=== PATIENT | male | born 1990 | race Caucasian/White ===

== ENCOUNTER 2016-11-05 18:19 | Emergency (ER) ==
[2016-11-05 18:24] VITALS: BP 133/76; TEMP 96.8; BMI 26.4
[2016-11-05] MEDS ORDERED: SODIUM CHLORIDE 1,000 ML IV STA (18:31)
--- NOTE | 2016-11-05 18:31 | ED.PDOC ---
General Stated Complaint: left lower abdomen stabbing sharp pain has vomited not able to urinate[End]SINCE 1300 96.8 58 14 99% 133/76 9/10 having trouble urinating[ End] Time Seen by Physician: 18:35 Mode of Arrival: Walk-In Information Source: Patient Exam Limitations: No limitations Nursing and Triage Documentation Reviewed and Agree: No <MARK ESCOBEDO JR - Last Filed: 11/05/16 18:53> <POLY LOW - Last Filed: 11/05/16 19:31> ED Provider: Dr. POLY LOW Chief Complaint: Kidney Stone Review of Systems - Review Of Systems Constitutional: Reports: Malaise, Weakness Eyes: Reports: No symptoms Ears, Nose, Mouth, Throat: Reports: No symptoms Respiratory: Reports: No symptoms Cardiac: Reports: No symptoms GI: Reports: Abdominal pain (LLQ), Nausea, Vomiting : Reports: Other Musculoskeletal: Reports: No symptoms Skin: Reports: No symptoms Neurological: Reports: No symptoms Endocrine: Reports: No symptoms Hematologic/Lymphatic: Reports: No symptoms All Other Systems: Other <MARK ESCOBEDO JR - Last Filed: 11/05/16 18:53> Past Medical History - Past Medical History Endocrine: Reports: None Cardiovascular: Reports: None Respiratory: Reports: None Hematological: Reports: None Gastrointestinal: Reports: None Genitourinary: Reports: None Neuro/Psych: Reports: Anxiety, Depression Musculoskeletal: Reports: None Cancer: Reports: None - Surgical History General Surgical History: Reports: Tonsillectomy, Adenoidectomy, Other ( PETUBES ), Unknown - Family History Family History: Reports: Unknown - Social History Smoking Status: Current every day smoker, Light tobacco smoker Hx Substance Use: No Alcohol Screening: None <MARK ESCOBEDO JR - Last Filed: 11/05/16 18:53> Physical Exam - Physical Exam Appearance: Well-appearing, Thin Pain Distress: Moderate Neck: Supple Respiratory: Airway patent Cardiovascular: RRR GI/: Soft, No masses, Tender (LLQ wihtout rebound slight fullness no discrete mass), Bowel sounds hypoactive Musculoskeletal: Normal strength, ROM intact, No edema, No calf tenderness Skin: Warm, Dry, Normal color Neurological: Sensation intact, Motor intact, Reflexes intact, Cranial nerves intact, Alert, Oriented Psychiatric: Affect appropriate, Mood appropriate <MARK ESCOBEDO JR - Last Filed: 11/05/16 18:53> Interpretation - Radiology Interpretation Radiology Interpretation By: Radiologist Radiology Results: Positive Exam Interpreted: CT Scan ("0.1 ureteral stone") <JOLANTATDPOLY - Last Filed: 11/05/16 19:31> Re-Evaluation - Re-Evaluation Time of Re-Evaluation: 19:28 Status: Improved Vital Signs Stable: Yes Pain Level: 1 Appearance: NAD Lungs: Clear Skin: Warm and Dry Neuro: Alert and Oriented X3 CV: RRR <JOLANTATDPOLY - Last Filed: 11/05/16 19:31> Physician Notification - Case Discussed Endorsed To/Discussed With: dr arita Time of Discussion: 18:53 <MARK ESCOBEDO - Last Filed: 11/05/16 18:53> Critical Care Note - Critical Care Note Total Time (mins): 0 <MARK ESCOBEDO - Last Filed: 11/05/16 18:53> Course - Course Hematology/Chemistry: 11/05/16 18:50 11/05/16 18:50 <POLY LOW - Last Filed: 11/05/16 19:31> - Course Orders, Labs, Meds: Lab Review 11/05/16 11/05/16 18:33 18:50 WBC 15.74 H RBC 5.11 Hgb 16.1 Hct 46.5 MCV 91.0 MCH 31.5 H MCHC 34.6 RDW Coeff of [place]ma 11.8 Plt Count 200 Immature Gran % (Auto) 0.4 Neut % (Auto) 89.8 Lymph % (Auto) 5.7 L Williams % (Auto) 3.9 Eos % (Auto) 0.1 Baso % (Auto) 0.1 Immature Gran # (Auto) 0.1 Neut # 14.1 H Lymph # 0.9 Williams # 0.6 Eos # 0.0 Baso # 0.0 Sodium 140 Potassium 3.6 Chloride 102 Carbon Dioxide 25 Anion Gap 16.6 BUN 4 L Creatinine 1.08 Estimated GFR (MDRD) 83.00 BUN/Creatinine Ratio 3.70 Glucose 103 H Calcium 9.4 Total Bilirubin 0.93 AST 16 ALT 19 Alkaline Phosphatase 85 Total Protein 7.3 Albumin 4.4 Globulin 2.9 Albumin/Globulin Ratio 1.52 Amylase 32 Lipase 8 Urine Color Yellow Urine Clarity Clear Urine pH 6.0 Ur Specific [place] 1.025 Urine Protein 1+ Urine Glucose (UA) Negative Urine Ketones 4+ Urine Blood 3+ Urine Nitrite Negative Urine Bilirubin 1+ Urine Urobilinogen 1.0 Ur Leukocyte Esterase Negative Urine Microscopic RBC 5-10 Ur Squamous Epith Cells 2-5 Urine Mucus Trace H. pylori IgG Antibody Negative Orders Category Date Time Status Bladder Scan [ED BLADDER SCAN] .ONCE EMERGENCY 11/05/16 19:20 Active ED IV/MEDIPORT/POWERPORT .ONCE EMERGENCY 11/05/16 18:31 Active AMYLASE Stat LAB 11/05/16 18:50 Completed CBC W/ AUTO DIFF Stat LAB 11/05/16 18:50 Completed COMPREHENSIVE METABOLIC PANEL Stat LAB 11/05/16 18:50 Completed H. PYLORI SCREEN Stat LAB 11/05/16 18:50 Completed LIPASE Stat LAB 11/05/16 18:50 Completed URINALYSIS C & S IF INDICATED Stat LAB 11/05/16 18:33 Completed 0.9 % Sodium Chloride [Saline Flush] MEDS 11/05/16 18:31 Ordered 1 syr IVF PRN PRN Ketorolac Tromethamine [Toradol] MEDS 11/05/16 18:40 Discontinued 30 mg IVP ONCE STA Ondansetron HCl/Pf [Zofran 4 mg/2 ml] MEDS 11/05/16 18:40 Discontinued 4 mg IVP ONCE STA Sodium Chloride 0.9% [Sodium Chloride] 1,000 ml MEDS 11/05/16 18:[address] ABDOMEN/PELVIS WO CONTRAST Stat RADS 11/05/16 18:31 Completed Medications Generic Name Dose Route Start Last Admin Trade Name Freq PRN Reason Stop Dose Admin Sodium Chloride 1,000 mls @ 1,000 mls/hr 11/05/16 18:31 11/05/16 18:49 Sodium Chloride IV 11/05/16 19:30 1,000 mls/hr BOLUS STA Administration Sodium Chloride 1 syr 11/05/16 18:31 11/05/16 18:50 Saline Flush IVF 1 syr PRN PRN Administration To flush IV Discontinued Medications Generic Name Dose Route Start Last Admin Trade Name Freq PRN Reason Stop Dose Admin Ketorolac Tromethamine 30 mg 11/05/16 18:40 11/05/16 18:49 Toradol IVP 11/05/16 18:41 30 mg ONCE STA Administration Ondansetron HCl 4 mg 11/05/16 18:40 11/05/16 18:48 Zofran 4 Mg/2 Ml IVP 11/05/16 18:41 4 mg ONCE STA Administration Vital Signs: Temp Pulse Resp BP Pulse Ox 11/05/16 18:21 96.8 F L 58 L 14 133/76 99 Departure <MARK ESCOBEDO JR - Last Filed: 11/05/16 18:53> - Departure Time of Disposition: 19:29 Pt referred to PMD for follow-up: Yes Disposition Discussed With: Patient, Family <POLY LOW - Last Filed: 11/05/16 19:31> - Departure Disposition: HOME SELF-CARE Discharge Problem: Kidney stone Instructions: Ureteral Stones (ED), Renal Colic (ED) Condition: Good Additional Instructions: strain all urine--plenty of fluids--flomax 0.4mg q daily #3--norco 7.5mg q 4hrs prn pain #10--f/u with pcp tomorrow Allergies/Adverse Reactions: Allergies No Known Allergies Allergy (Verified 11/05/16 18:23) Home Medications: Ambulatory Orders 1 [No Reported Medications] 11/05/16
[2016-11-05] MEDS ORDERED: ZOFRAN 4 MG/2 ML IVP STA (18:40)
[2016-11-05] MEDS ORDERED: TORADOL IVP STA (18:40)
[2016-11-05 18:57] LABS: BASOPHILS % (AUTO) 0.1 % (0.0-3.0); EOSINOPHILS % (AUTO) 0.1 % (0.0-7.0); HEMATOCRIT 46.5 % (42.0-52.0); HEMOGLOBIN 16.1 g/dl (14.0-18.0); IMMATURE GRANULOCYTE % (AUTO) 0.4 % (0.0-5.0); LYMPHOCYTES # (AUTO) 0.9 K/uL (0.60-3.4); LYMPHOCYTES % (AUTO) 5.7 (10.0-50.0); MEAN CORPUSCULAR HEMOGLOBIN 31.5 pg (27.0-31.0); MEAN CORPUSCULAR HGB CONC 34.6 (31.8-35.4); MONOCYTES # (AUTO) 0.6 K/uL (0.4-2.0); MONOCYTES % (AUTO) 3.9 (0-10); NEUTROPHILS # (AUTO) 14.1 K/ul (2.0-6.9); NEUTROPHILS % (AUTO) 89.8; PLATELET COUNT 200 10^3/uL (140-440); RED BLOOD COUNT 5.11 10^6/ul (4.70-6.10); WHITE BLOOD COUNT 15.74 K/ul (4.2-10.2)
--- NOTE | 2016-11-05 19:06 | CT ---
Exam: CT scan of the abdomen pelvis without contrast. Date: 11/05/2016. Comparison: None. HISTORY: Sharp stabbing left lower abdominal pain. TECHNIQUE: Helical scan of the abdomen pelvis was performed without contrast. FINDINGS: The lung bases are clear. The lumbar spine and bony pelvis are within normal limits. The spleen and liver have a uniform attenuation. The gallbladder, stomach, pancreas and adrenal gla nds are normal. The kidneys have a normal morphology. There is a 0.1-cm nonobstructing calculus in the lower pole of the right kidney there is a 0.2-cm nonobstructing calculus in the lower pole left kidney. There is left hydroureteronephrosis down to the ureterovesicular junction where a 0.1 cm ob structing calculus is present. No retroperitoneal adenopathy is seen. Aorta does not exceed 3 cm. The small bowel and appendix are normal. The colon, pelvic sidewall and bladder are normal. There is no free pelvic fluid. Prostate, rectum inguinal regions are normal. Impression: Bilateral nephrolithiasis with a 0.1 cm obstructing calculus at the left ureterovesicul ar junction with resultant mild left hydroureteronephrosis.
[2016-11-05 19:12] LABS: H. PYLORI ANTIBODY NEGATIVE (NEGATIVE); H.PYLORI INTERNAL QC INTERNAL QC VALID
[2016-11-05 19:16] LABS: ALBUMIN 4.4 g/dL (3.4-5.0); ALBUMIN/GLOBULIN RATIO 1.52; ANION GAP 16.6; BILIRUBIN,TOTAL 0.93 mg/dL (0.00-1.20); BUN/CREATININE RATIO 3.7; CALCIUM 9.4 mg/dL (8.2-10.2); CREATININE 1.08 mg/dL (0.60-1.10); POTASSIUM 3.6 mmol/L (3.5-5.1); TOTAL PROTEIN 7.3 g/dL (6.4-8.2)
[2016-11-05 19:18] LABS: BILIRUBIN,URINE 1+ (NEGATIVE); KETONES,URINE 4+ (NEGATIVE); LEUKOCYTE ESTERASE ,URINE Negative (NEGATIVE); NITRITE,URINE Negative (NEGATIVE); PROTEIN,URINE 1+ (NEGATIVE); URINE, BLOOD 3+ (NEGATIVE)
[2016-11-05 19:23] LABS: ADD URINE MICROSCOPIC YES
[2016-11-05] MEDS ORDERED: FLOMAX PO STA (19:31)
== END 2016-11-05 19:35 | disposition home or self-care (01) ==
LOC: ED 18:19
DX: N20.0 Calculus of kidney (principal); F17.210 Nicotine dependence, cigarettes, uncomplicated
CPT/HCPCS: 36415; 80053; 81001; 82150; 83690; 85025; 86677; 96360; 96375; 99284

== ENCOUNTER 2019-04-08 10:58 | Observation (INO) ==
[2019-04-08 11:20] LABS: HEMATOCRIT 45.1 % (42.0-52.0)
--- NOTE | 2019-04-08 11:53 | CT ---
EXAM: CT BRAIN HISTORY: Change in mental status TECHNIQUE: CT brain without intravenous contrast. 5-mm axial sections with Reformations. COMPARISON: None FINDINGS: Brain was unremarkable without evidence of hemorrhage or large vessel distribution recent ischemic i nfarction. There is no suggestion of acute hydrocephalus or subdural fluid collection. No mass or m ass effect. Cranium has no acute finding. Mastoid processes are aerated. The visualized paranasal sinuses are clear. IMPRESSION: No acute intracranial process.
--- NOTE | 2019-04-08 12:16 | ED.PDOC ---
General ED Provider: Dr. POLY ALONSO-ER Chief Complaint: Altered Mental Status Stated Complaint: arrested for dui last night and tody started acting strange Time Seen by Physician: 12:16 Mode of Arrival: Walk-In Information Source: Patient Primary Care Provider: MARK CALIXTO Nursing and Triage Documentation Reviewed and Agree: Yes Does patient meet sepsis criteria?: No System Inflammatory Response Syndrome: Not Applicable Sepsis Protocol: For patient's 13 years and over: Temp is 96.8 and below OR 101 and greater Pulse >90 BPM Resp >20/minute Acutely Altered Mental Status Are patient's symptoms suggestive of a new infection, such as: -Pneumonia -Skin, Soft Tissue -Endocarditis -UTI -Bone, Joint Infection -Implantable Device -Acute Abdominal Infection -Wound Infection -Meningitis -Blood Stream Catheter Infection -Unknown Neurological Complaint Exam Altered Mental Status Complaint/Exam Current Mental Status: Confusion Last Known Well: this am Onset: Gradual Duration: this am Symptoms Are: Still present Initial Severity: Mild Current Severity: Mild Eye Deviation Present: No Character: Reports Responsiveness and Lethargy Aggravating: Reports Drug abuse Alleviating: Reports None Cardiac Risk Factors: Reports None Carotid Bruit Present: No Nystagmus Present: No Gag Reflex Present: Yes Focal Weakness: Present None Focal Sensory Loss: Present None Gait: Normal Lkktul-wi-Mrug: Normal Findings Romberg Test Positive: No Heel to Toe Normal: No Signs of Injury: Present Normal findings Thrombolytics Considered: No Review of Systems Review Of Systems Constitutional: Reports No symptoms Eyes: Reports No symptoms Ears, Nose, Mouth, Throat: Reports No symptoms Respiratory: Reports No symptoms Cardiac: Reports No symptoms GI: Reports No symptoms : Reports No symptoms Musculoskeletal: Reports No symptoms Skin: Reports No symptoms Neurological: Reports Cognitive dysfunction Endocrine: Reports No symptoms Hematologic/Lymphatic: Reports No symptoms All Other Systems: Reviewed and Negative Physical Exam Physical Exam Appearance: Well-appearing Ill-appearing: None Pain Distress: None Eyes: TONYA, EOMI and Conjunctiva clear ENT: Ears normal, Nose normal and Oropharynx normal Neck: Supple Respiratory: Airway patent, Breath sounds clear and Breath sounds equal Cardiovascular: RRR, Pulses normal, No rub and No murmur GI/: Soft, Nontender, No masses and Bowel sounds normal Musculoskeletal: Normal strength Skin: Warm and Dry Neurological: Sensation intact, Motor intact, Reflexes intact, Cranial nerves intact, Alert and Oriented Psychiatric: Affect appropriate and Mood appropriate Interpretation Radiology Interpretation Radiology Interpretation By: Radiologist Radiology Results: Negative Exam Interpreted: CT Scan Critical Care Note Critical Care Note Total Time (mins): 0 Course Course Hematology/Chemistry: 04/08/19 11:15 04/08/19 11:15 Orders, Labs, Meds: Lab Review 04/08/19 04/08/19 04/08/19 11:15 11:15 11:28 WBC 8.29 RBC 4.89 Hgb 15.6 Hct 45.1 MCV 92.2 MCH 31.9 H MCHC 34.6 RDW Coeff of [place]ma 11.9 Plt Count 257 Immature Gran % (Auto) 0.4 Neut % (Auto) 71.3 Lymph % (Auto) 21.4 Bee % (Auto) 6.6 Eos % (Auto) 0.1 Baso % (Auto) 0.2 Immature Gran # (Auto) 0.0 Neut # (Auto) 5.9 Lymph # (Auto) 1.8 Bee # (Auto) 0.6 Eos # (Auto) 0.0 Baso # (Auto) 0.0 Sodium 139.7 Potassium 3.42 L Chloride 100.8 Carbon Dioxide 29.0 Anion Gap 13.32 BUN 10.8 Creatinine 0.75 Estimated GFR (MDRD) 125.00 BUN/Creatinine Ratio 14.40 Glucose 102.9 Calcium 10.02 Total Bilirubin 1.13 AST 23.4 ALT 20.8 Alkaline Phosphatase 68.5 Total Protein 8.59 H Albumin 5.07 H Globulin 3.52 Albumin/Globulin Ratio 1.44 Urine Color Yellow Urine Clarity Clear Urine pH 6.0 Ur Specific [place] >=1.030 Urine Protein Trace Urine Glucose (UA) Negative Urine Ketones 1+ Urine Blood Trace-intact Urine Nitrite Negative Urine Bilirubin Negative Urine Urobilinogen 1.0 Ur Leukocyte Esterase Negative Urine Microscopic RBC 0-2 Urine Microscopic WBC 0-2 Ur Squamous Epith Cells Not present Calcium Oxalate Crystal 2+ Urine Bacteria Trace Hyaline Casts 0-2 Salicylate Level mg/dL < 1.00 Urine Opiates Screen Ur Oxycodone Screen Urine Methadone Screen Ur Propoxyphene Screen Acetaminophen < 10.0 L Ur Barbiturates Screen U Tricyclic Antidepress Ur Phencyclidine Scrn Ur Amphetamine Screen U Methamphetamines Scrn U Benzodiazepines Scrn Urine Cocaine Screen U Cannabinoids Screen Plasma/Serum Alcohol < 10.0 04/08/19 11:28 WBC RBC Hgb Hct MCV MCH MCHC RDW Coeff of [place]ma Plt Count Immature Gran % (Auto) Neut % (Auto) Lymph % (Auto) Bee % (Auto) Eos % (Auto) Baso % (Auto) Immature Gran # (Auto) Neut # (Auto) Lymph # (Auto) Bee # (Auto) Eos # (Auto) Baso # (Auto) Sodium Potassium Chloride Carbon Dioxide Anion Gap BUN Creatinine Estimated GFR (MDRD) BUN/Creatinine Ratio Glucose Calcium Total Bilirubin AST ALT Alkaline Phosphatase Total Protein Albumin Globulin Albumin/Globulin Ratio Urine Color Urine Clarity Urine pH Ur Specific [place] Urine Protein Urine Glucose (UA) Urine Ketones Urine Blood Urine Nitrite Urine Bilirubin Urine Urobilinogen Ur Leukocyte Esterase Urine Microscopic RBC Urine Microscopic WBC Ur Squamous Epith Cells Calcium Oxalate Crystal Urine Bacteria Hyaline Casts Salicylate Level mg/dL Urine Opiates Screen Negative Ur Oxycodone Screen Negative Urine Methadone Screen Negative Ur Propoxyphene Screen Negative Acetaminophen Ur Barbiturates Screen Negative U Tricyclic Antidepress Negative Ur Phencyclidine Scrn Negative Ur Amphetamine Screen Negative U Methamphetamines Scrn Negative U Benzodiazepines Scrn Positive Urine Cocaine Screen Negative U Cannabinoids Screen Positive Plasma/Serum Alcohol Orders Category Date Time Status ACETAMINOPHEN Stat LAB 04/08/19 11:15 Completed BLOOD ALCOHOL Stat LAB 04/08/19 11:15 Completed CBC W/ AUTO DIFF Stat LAB 04/08/19 11:15 Completed COMPREHENSIVE METABOLIC PANEL Stat LAB 04/08/19 11:15 Completed DRUG SCREEN, URINE, RAPID Stat LAB 04/08/19 11:28 Completed SALICYLATE Stat LAB 04/08/19 11:15 Completed URINALYSIS C & S IF INDICATED Stat LAB 04/08/19 11:[address] HEAD W/O CONTRAST Stat RADS 04/08/19 10:59 Completed Vital Signs: Temp Pulse Resp BP Pulse Ox 04/08/19 10:58 98.2 F 75 18 116/96 H 99 Discharge Plan Discharge Patient Disposition: PLACED OBSERVATION Discharge Problem: Altered mental status Prescriptions: No Action Thyroid Med RF: 0 ED Provider: POLY LOW Condition: Good
[2019-04-08] MEDS ORDERED: SODIUM CHLORIDE 1,000 ML IV SCH (12:30)
[2019-04-08 13:32] VITALS: BMI 25.2
[2019-04-08] MEDS ORDERED: GEODON IM PRN (18:03)
[2019-04-09 04:48] LABS: HEMATOCRIT 43.6 % (42.0-52.0)
[2019-04-09 06:04] VITALS: TEMP 99.6
[2019-04-09] MEDS ORDERED: ANECTINE IVP STA (10:00)
[2019-04-09] MEDS ORDERED: NARCAN IVP STA (10:00)
[2019-04-09] MEDS ORDERED: AMIDATE IVP STA (10:00)
[2019-04-09] MEDS ORDERED: ANECTINE ONE (10:06)
[2019-04-09] MEDS ORDERED: AMIDATE IVP ONE (10:06)
[2019-04-09] MEDS ORDERED: DEXTROSE 50%-WATER ABBOJECT IVP STA (10:10)
[2019-04-09] MEDS ORDERED: NORCURON IVP STA (10:20)
[2019-04-09] MEDS ORDERED: NORCURON ONE (10:22)
[2019-04-09] MEDS ORDERED: DIPRIVAN 20 ML VIAL IVP ONE (10:24)
[2019-04-09] MEDS ORDERED: DIPRIVAN 1,000 MG/100 ML VIAL 1,000 MG/100 ML INFUS..BTL IV ONE (10:24)
[2019-04-09] MEDS ORDERED: DIPRIVAN 20 ML VIAL IVP STA (10:25)
--- NOTE | 2019-04-09 10:28 | DI ---
EXAM: Chest one view HISTORY: Code blue COMPARISON: None TECHNIQUE: Single view of the chest was performed FINDINGS: ET tube terminates 6.3 cm above the ely. Defibrillator pads overlie the heart. Clear l ungs. There is no pleural effusion or pneumothorax. The heart is normal in size. The mediastinal c ontour is normal. There are no acute abnormalities of the bones. IMPRESSION: No acute cardiopulmonary process.
[2019-04-09] MEDS ORDERED: DIPRIVAN 1,000 MG/100 ML VIAL 1,000 MG/100 ML INFUS..BTL IV SCH (10:30)
[2019-04-09 12:14] LABS: HEMATOCRIT 45.6 % (42.0-52.0)
[2019-04-10 08:27] VITALS: BP 139/89
== END 2019-04-09 10:55 | disposition short-term general hospital (02) ==
LOC: ED 10:58 → INTOOBSV 12:24 → SCU 12:24
PROVIDERS: ADMIT Family Medicine; ATTEND Family Medicine
DX: R55 Syncope and collapse; R41.82 Altered mental status, unspecified